=== PATIENT | male | born 1970 | race African-American/Black ===

== ENCOUNTER 2017-01-21 19:52 | Emergency (ER) | payer OTHER ==
[~2017-01-21] VITALS: Ht 180.3 cm; Wt 77.1 kg
[~2017-01-21 19:52] MED LIST: AMOX500C PO; HYDR-971 PO
[2017-01-21] MEDS ORDERED: TRAM-48 PO (21:25)
--- NOTE | 2017-01-21 21:26 | PHYS DOC ---
Past Medical History Past Medical History: No Pertinent History Past Surgical History: No Surgical History Alcohol Use: Occasionally Drug Use: None Adult General Chief Complaint Chief Complaint: HAND PROBLEM HPI HPI Patient is a 46 year old male who presents to be evaluated for left hand fracture that he sustained on January 15, 2017. Patient states his job is requesting him to return to work and lift 15 pounds of which he is not able to do due to the broken bones. He is requesting a note to excuse him from heavy lifting. He states he has not seen the orthopedic doctor yet. He is also out of his pain medicine. Patient is left-handed. Review of Systems Review of Systems Constitutional: Denies fever or chills [] Musculoskeletal: Left hand pain Integument: Denies rash or skin lesions [] Neurologic: Denies headache, focal weakness or sensory changes [] All other systems were reviewed and found to be within normal limits, except as documented in this note. Allergies Allergies Allergies Coded Allergies Type Severity Reaction Last Updated Verified No Known Drug Allergies 01/15/17 No Physical Exam Physical Exam Constitutional: Well developed, well nourished, no acute distress, non-toxic appearance. [] Skin: Warm, dry, no erythema, no rash. [] Back: No tenderness, no CVA tenderness. [] Extremities: Left hand is splinted. Full range of motion to the left fingers. Cap refill less than 2 seconds the left fingers. Neurologic: Alert and oriented X 3, normal motor function, normal sensory function, no focal deficits noted. [] Psychologic: Affect normal, judgement normal, mood normal. [] Current Patient Data Vital Signs Vital Signs Date Time Temp Pulse Resp B/P (MAP) Pulse Ox O2 Delivery O2 Flow Rate FiO2 01/21/17 20:27 98.3 130 18 163/87 (112) 98 Room Air 98.3 EKG EKG [] Radiology/Procedures Radiology/Procedures [] Course & Med Decision Making Course & Med Decision Making Pertinent Labs and Imaging studies reviewed. (See chart for details) Patient is in the ED to be evaluated for left hand fracture he sustained almost a week ago. He has not seen an orthopedic doctor and his job is requesting him to return to work and left 15 pounds of weight which he is not able to. He is left-handed. His heart rate was 130 on arrival to the Ed, it came down to 115 as well as talking to him he states he is nervous of shots and hospitals. He appears drunk. I gave him a note to excuse him from work and recommended he contacts the provided orthopedic doctor and set up a follow-up appointment as soon as possible. D/C with [facility] Wilkes Disclaimer Katrin Disclaimer This electronic medical record was generated, in whole or in part, using a voice recognition dictation system. Departure Departure Impression: Primary Impression: Closed left hand fracture Disposition: HOME, SELF-CARE Condition: STABLE Referrals: NO PCP (PCP) LARISSA GARRETT MD call his office for a follow up appointment Patient Instructions: Hand Fracture Additional Instructions: You have left hand fracture. Please follow-up with the provided orthopedic doctor as soon as possible. Make sure you call the office tomorrow morning for follow-up appointment. Scripts Tramadol Hcl (ULTRAM) 50 Mg Tablet 1 TAB PO Q6HRS, #20 TAB Prov: VERONICA VELAZQUEZ APRN 01/21/17 Problem Qualifiers Primary Impression: Closed left hand fracture Encounter type: subsequent encounter Fracture healing: with delayed healing Qualified Codes: S62.92XG - Unspecified fracture of left wrist and hand, subsequent encounter for fracture with delayed healing VERONICA VELAZQUEZ APRN Jan 21, 2017 21:26
[2017-01-21 21:34] VITALS: BP 134/86
== END 2017-01-21 21:35 | disposition home or self-care (01) ==
LOC: ER 19:52
DX: S62.92XG Unspecified fracture of left hand, subsequent encounter for fracture with delayed healing (principal); X58.XXXD Exposure to other specified factors, subsequent encounter
CPT/HCPCS: 99283

== ENCOUNTER 2017-02-16 17:23 | Emergency (ER) | payer OTHER ==
[~2017-02-16] VITALS: Ht 180.3 cm; Wt 77.1 kg
[~2017-02-16 17:23] MED LIST changes: +TRAM-48 PO
[2017-02-16 17:30] VITALS: BP 129/87
--- NOTE | 2017-02-16 17:51 | PHYS DOC ---
Past Medical History Past Medical History: No Pertinent History Past Surgical History: No Surgical History Alcohol Use: Occasionally Drug Use: None Adult General Chief Complaint Chief Complaint: HAND PROBLEM HPI HPI Patient is a 46 year old male with history of ocular abuse who presents today requesting a work release. Patient states he got injured at work one and a half months ago. He states he broke his left hand. He states he would like a release to return to work. Patient denies ever following up with an orthopedic doctor. He states his job would not let him back at work unless he has a doctor's release. Review of Systems Review of Systems Constitutional: Denies fever or chills [] Musculoskeletal: Left hand injury Integument: Denies rash or skin lesions [] Neurologic: Denies headache, focal weakness or sensory changes [] All other systems were reviewed and found to be within normal limits, except as documented in this note. Allergies Allergies Allergies Coded Allergies Type Severity Reaction Last Updated Verified No Known Drug Allergies 01/15/17 No Physical Exam Physical Exam Constitutional: Well developed, well nourished, no acute distress, non-toxic appearance. [] Skin: Warm, dry, no erythema, no rash. [] Back: No tenderness, no CVA tenderness. [] Extremities: Left hand appears deformed on the middle finger and ring finger knuckles. Full range of motion to the left hand. Adequate radial medial and ulnar sensation to the left hand. +2 left radial pulse. Cap refill less than 2 seconds the left fingers. Neurologic: Alert and oriented X 3, normal motor function, normal sensory function, no focal deficits noted. [] Psychologic: Affect normal, judgement normal, mood normal. [] EKG EKG [] Radiology/Procedures Radiology/Procedures [] Course & Med Decision Making Course & Med Decision Making Pertinent Labs and Imaging studies reviewed. (See chart for details) Patient is in the ED requesting a release to return to work after fracturing his left hand one and a half months ago. He has not followed up with an orthopedic doctor. Informed patient we will not give him a release to return to work. Requested him to see the orthopedic doctor and or work man comp doctor for work release. Dragon Disclaimer Dragon Disclaimer This electronic medical record was generated, in whole or in part, using a voice recognition dictation system. Departure Departure Impression: Primary Impression: Encounter related to worker's compensation claim Disposition: 01 HOME, SELF-CARE Condition: STABLE Referrals: NO PCP (PCP) LARISSA GARRETT MD call his office on Saturday and set up a follow up appointment. Patient Instructions: Hand Injuries, [id number] Additional Instructions: You were evaluated in the emergency room for a work related injury. We will not give you a work release. You need to follow-up with the orthopedic doctor we provided or [facility] doctor and they will decide if you can return to work or not. VERONICA VELAZQUEZ GREENHOUSE TECHNICIAN Feb 16, 2017 17:51
== END 2017-02-16 18:00 | disposition home or self-care (01) ==
LOC: ER 17:23
DX: Z02.89 Encounter for other administrative examinations (principal)
CPT/HCPCS: 99281